=== PATIENT | male | born 1930 ===

== ENCOUNTER 2018-04-27 20:29 | Emergency (ER) | payer MEDICARE ==
[2018-04-27 20:44] VITALS: RESP 18; TEMP 97.9
--- NOTE | 2018-04-27 22:54 | ED PDOC ---
HPI: General Adult Time Seen by Provider: 04/27/18 21:56 Chief Complaint (Nursing): Anxiety Chief Complaint (Provider): Loss of appetite History Per: Patient History/Exam Limitations: no limitations Onset/Duration Of Symptoms: Other (x1 month) Current Symptoms Are (Timing): Still Present Additional Complaint(s): 88 year old male presents to the ED complaining of loss of appetite for the last month intermittently. He reports he feels nervous and nauseous which causes him to lose his appetite. He states he feels either good or tired and it comes and goes. Denies dizziness, numbness, fever, chest pain, nausea, vomiting, and diarrhea. Patient has no complaints right now. PMD: Dr. Shane Charles Past Medical History Reviewed: Historical Data, Nursing Documentation, Vital Signs Vital Signs: Last Vital Signs Temp 97.9 F 04/27/18 20:39 Pulse 62 04/27/18 20:39 Resp 18 04/27/18 20:39 BP 165/80 H 04/27/18 20:39 Pulse Ox 99 04/27/18 20:39 - Medical History PMH: HTN, Hypercholesterolemia, Hyperlipidemia, Hyperthyroidism - Surgical History Surgical History: Coronary Stent (3x) - Family History Family History: States: Unknown Family Hx - Immunization History Hx Tetanus Toxoid Vaccination: No Hx Influenza Vaccination: No Hx Pneumococcal Vaccination: No - Home Medications Home Medications: Ambulatory Orders Medication Instructions Recorded Benicar Hct 25 mg-40 mg 1 tab DAILY 10/03/14 Clopidogrel 75 mg DAILY 10/03/14 Hydralazine HCl 25 mg HS 10/03/14 Levothyroxine 25 mcg DAILY 10/03/14 RX: Naproxen [Naprosyn] 1 tab PO BID PRN #25 tab 10/03/14 Simvastatin 20 mg DAILY 10/03/14 Atenolol/Chlorthalidone 1 tab PO DAILY 05/19/15 [Atenolol/Chlorthalidone 50 mg-25 mg] RX: Clopidogrel [Plavix] 75 mg PO DAILY 05/19/15 RX: Enalapril Maleate [Vasotec] 10 mg PO HS 05/19/15 RX: Levothyroxine [Synthroid] 25 mg PO DAILY 05/19/15 RX: hydrALAZINE [Apresoline] 50 mg PO TID 05/19/15 Simvastatin 20 mg PO DAILY 05/19/15 Cyclobenzaprine HCl [Flexeril] 10 mg PO HS #10 tab 06/06/15 Oxycodone HCl/Acetaminophen 1 tab PO Q4 #10 tab 06/06/15 [Percocet 325 mg-5 mg] - Allergies Allergies/Adverse Reactions: Allergies Allergy/AdvReac Type Severity Reaction Status Date / Time No Known Allergies Allergy Verified 04/27/18 20:38 Review of Systems ROS Statement: Except As Marked, All Systems Reviewed And Found Negative Constitutional: Negative for: Fever Cardiovascular: Negative for: Chest Pain Gastrointestinal: Negative for: Nausea, Vomiting, Diarrhea Neurological: Negative for: Weakness, Numbness, Dizziness Physical Exam - Reviewed Nursing Documentation Reviewed: Yes Vital Signs Reviewed: Yes - Physical Exam Appears: Positive for: Non-toxic, No Acute Distress Head Exam: Positive for: ATRAUMATIC, NORMOCEPHALIC Skin: Positive for: Normal Color, Warm, Dry Eye Exam: Positive for: Normal appearance Neck: Positive for: Normal, Painless ROM Cardiovascular/Chest: Positive for: Regular Rate, Rhythm. Negative for: Murmur Respiratory: Positive for: Normal Breath Sounds. Negative for: Wheezing, Respiratory Distress Gastrointestinal/Abdominal: Positive for: Normal Exam, Soft. Negative for: Tenderness Extremity: Positive for: Normal ROM Neurologic/Psych: Positive for: Alert, Oriented. Negative for: Motor/Sensory Deficits - Laboratory Results Result Diagrams: 04/27/18 23:15 04/27/18 23:15 - ECG O2 Sat by Pulse Oximetry: 99 (RA) Pulse Ox Interpretation: Normal Medical Decision Making Medical Decision Making: Initial Impression: Decreased appetite, generalized weakness Differential includes UTI, dehydration, electrolyte abnormality Initial Plan: --ECG --Alcohol serum --CMP --Drug screen --ED urine dipstick --CBC Scribe Attestation: Documented by Noah Danielson acting as a scribe for Galina Fuentes MD. Provider Scribe Attestation: All medical record entries made by the Scribe were at my direction and personally dictated by me. I have reviewed the chart and agree that the record accurately reflects my personal performance of the history, physical exam, medical decision making, and the department course for this patient. I have also personally directed, reviewed, and agree with the discharge instructions and disposition. Disposition - Clinical Impression Clinical Impression: Anxiety, Hypertension - Patient ED Disposition Is Patient to be Admitted: No Doctor Will See Patient In The: Office Counseled Patient/Family Regarding: Studies Performed, Diagnosis, Need For Followup - Disposition Disposition: Routine/Home Disposition Time: 00:00 Condition: GOOD Additional Instructions: CAN JASON, thank you for letting us take care of you today. Your provider was Galina Fuentes MD and you were treated for LOSS OF APPETITE. The emergency medical care you received today was directed at your acute symptoms. If you were prescribed any medication, please fill it and take as directed. It may take several days for your symptoms to resolve. Return to the Emergency Department if your symptoms worsen, do not improve, or if you have any other problems. Please contact your doctor or call one of the physicians/clinics you have been referred to that are listed on the Patient Visit Information form that is included in your discharge packet. Bring any paperwork you were given at discharge with you along with any medications you are taking to your follow up visit. Our treatment cannot replace ongoing medical care by a primary care provider outside of the emergency department. Thank you for allowing the [facility] team to be part of your care today. If you had an X-Ray or CT scan: A Radiologist will review the ED reading if any change in treatment is needed we will contact you. If you had a blood, urine, or wound culture: It will take several days for the results, if any change in treatment is needed we will contact you. If you had an STI test: It will take 48 hours for the results. Please call after 1 week if you have not heard back. Instructions: High Blood Pressure (DC), Anxiety, Adult (DC) Print Language: GREEK
[2018-04-27 23:18] LABS: BASO # 0.1 K/uL (0.0-0.2); BASO % 0.6 % (0.0-2.0); EOS # 0.1 K/uL (0.0-0.7); EOS % 1.4 % (0.0-4.0); HEMOGLOBIN 14.2 g/dL (12.0-18.0); LYMPH # 4.2 K/uL (1.0-4.3); MEAN CELL VOLUME 86.1 fl (80.0-94.0); MEAN CORPUSCULAR HEMOGLOBIN 29.3 pg (27.0-31.0); MEAN PLATELET VOLUME 8.5 fl (7.2-11.7); MONO # 0.8 K/uL (0.0-0.8); MONO % 7.1 % (0.0-10.0); NEUT # 5.6 K/uL (1.8-7.0); NEUT % 51.9 % (50.0-75.0); RBC 4.84 Mil/uL (4.40-5.90); RED CELL DISTRIBUTION WIDTH 13.6 % (11.5-14.5); WHITE BLOOD COUNT 10.7 K/uL (4.8-10.8)
[2018-04-27 23:27] LABS: ALB/GLOB RATIO 1.3 (1.0-2.1); ALBUMIN 4.7 g/dL (3.5-5.0); ALT/SGPT 32 U/L (21-72); AST/SGOT 34 U/L (17-59); BLOOD UREA NITROGEN 25 mg/dl (9-20); GFR NON-AFRICAN AMERICAN 52
[2018-04-27 23:39] LABS: BARBITURATES, UR NEGATIVE (NEGATIVE); BENZODIAZEPINES, UR NEGATIVE (NEGATIVE); OPIATES, UR NEGATIVE (NEGATIVE); PHENCYCLIDINE, UR NEGATIVE (NEGATIVE)
[2018-04-28 00:55] VITALS: BP 165/86; PULSE 68
--- NOTE | 2018-04-28 10:20 | CARD ---
APPROVED REPORT Date of service: 04/27/2018 EKG Measurement Heart [id number] <Conclusion> Sinus rhythm with 1st degree AV block Nonspecific ST and T wave abnormality Prolonged QT Abnormal ECG
[2018-04-30 18:58] VITALS: O2SAT 99
== END 2018-04-28 01:02 | disposition home or self-care (01) ==
LOC: H.ER 20:29
DX: F41.9 Anxiety disorder, unspecified (principal); I10 Essential (primary) hypertension; E05.90 Thyrotoxicosis, unspecified without thyrotoxic crisis or storm; E78.00 Pure hypercholesterolemia, unspecified; I44.0 Atrioventricular block, first degree; Z95.5 Presence of coronary angioplasty implant and graft
CPT/HCPCS: 80053; 85025; 93005; 99283; G0480

== ENCOUNTER 2018-09-05 02:32 | Emergency (ER) | payer MEDICARE ==
[2018-09-05 02:58] VITALS: RESP 18; TEMP 98.1; O2SAT 100
--- NOTE | 2018-09-05 03:41 | ED PDOC ---
HPI: Hypertension/Hypotension Time Seen by Provider: 09/05/18 02:57 Chief Complaint (Nursing): High Blood Pressure Chief Complaint (Provider): High Blood Pressure History Per: Patient History/Exam Limitations: no limitations Additional Complaint(s): 88 y/o male presents to the ED with concern for high blood pressure. Patient was evaluated by his PMD yesterday and was told his blood pressure was very high. Patient was started on new medication yesterday. Patient was so concerned with elevated blood pressure that he couldn't sleep and became very anxious. His decided to bring him in to the ED for further workup. Denies chest pain, shortness of breath, dizziness or weakness. Patient is compliant with his medi cations. Past Medical History Reviewed: Historical Data, Nursing Documentation, Vital Signs Vital Signs: Last Vital Signs Temp 98.1 F 09/05/18 02:44 Pulse 57 L 09/05/18 02:44 Resp 18 09/05/18 02:44 BP 166/100 H 09/05/18 02:44 Pulse Ox 100 09/05/18 02:44 - Medical History PMH: HTN, Hypercholesterolemia, Hyperlipidemia, Hyperthyroidism, Hypothyroidism - Surgical History Surgical History: Coronary Stent (3x) - Family History Family History: States: Unknown Family Hx - Immunization History Hx Tetanus Toxoid Vaccination: No Hx Influenza Vaccination: No Hx Pneumococcal Vaccination: No - Home Medications Home Medications: Ambulatory Orders Medication Instructions Recorded Benicar Hct 25 mg-40 mg 1 tab DAILY 10/03/14 Clopidogrel 75 mg DAILY 10/03/14 Hydralazine HCl 25 mg HS 10/03/14 Levothyroxine 25 mcg DAILY 10/03/14 RX: Naproxen [Naprosyn] 1 tab PO BID PRN #25 tab 10/03/14 Simvastatin 20 mg DAILY 10/03/14 Atenolol/Chlorthalidone 1 tab PO DAILY 05/19/15 [Atenolol/Chlorthalidone 50 mg-25 mg] RX: Clopidogrel [Plavix] 75 mg PO DAILY 05/19/15 RX: Enalapril Maleate [Vasotec] 10 mg PO HS 05/19/15 RX: Levothyroxine [Synthroid] 25 mg PO DAILY 05/19/15 RX: hydrALAZINE [Apresoline] 50 mg PO TID 05/19/15 Simvastatin 20 mg PO DAILY 05/19/15 Cyclobenzaprine HCl [Flexeril] 10 mg PO HS #10 tab 06/06/15 Oxycodone HCl/Acetaminophen 1 tab PO Q4 #10 tab 06/06/15 [Percocet 325 mg-5 mg] - Allergies Allergies/Adverse Reactions: Allergies Allergy/AdvReac Type Severity Reaction Status Date / Time No Known Allergies Allergy Verified 04/27/18 20:38 Review of Systems ROS Statement: Except As Marked, All Systems Reviewed And Found Negative Constitutional: Negative for: Weakness Cardiovascular: Negative for: Chest Pain Respiratory: Negative for: Shortness of Breath Neurological: Negative for: Dizziness Physical Exam - Reviewed Nursing Documentation Reviewed: Yes Vital Signs Reviewed: Yes - Physical Exam Appears: Positive for: Well, Non-toxic, No Acute Distress Head Exam: Positive for: ATRAUMATIC, NORMAL INSPECTION, NORMOCEPHALIC Skin: Positive for: Normal Color, Warm, DRY Eye Exam: Positive for: EOMI, Normal appearance, PERRL ENT: Positive for: Normal ENT Inspection Neck: Positive for: Normal, Painless ROM Cardiovascular/Chest: Positive for: Regular Rate, Rhythm, Bradycardia. Negative for: Murmur Respiratory: Positive for: Normal Breath Sounds. Negative for: Respiratory Distress Gastrointestinal/Abdominal: Positive for: Normal Exam, Soft. Negative for: T enderness Back: Positive for: Normal Inspection Extremity: Positive for: Normal ROM. Negative for: Pedal Edema, Deformity Neurologic/Psych: Positive for: Alert, Oriented. Negative for: Motor/Sensory Deficits - Laboratory Results Result Diagrams: 09/05/18 03:42 09/05/18 03:42 - ECG ECG Rhythm: Positive for: Normal QRS, Sinus Bradycardia, 1st Degree Heart Block Rate: 52 O2 Sat by Pulse Oximetry: 100 (RA) Pulse Ox Interpretation: Normal Medical Decision Making Medical Decision Making: Time: 03:29 MDM: Workup for high blood pressure. Patient's blood pressure within normal limits, no indication for medications Plan: * Basic Labs * Cardiac enzyme * CXR 04:26 Patient's labs are within normal limits. His blood pressure is stable at 166/87 without medications. Patient is to be discharged home and will follow up with his PMD. Scribe Attestation: Documented by Issa Ham acting as a scribe for Rina Garcia MD. Provider Scribe Attestation: All medical record entries made by the Scribe were at my direction and personally dictated by me. I have reviewed the chart and agree that the record accurately reflects my personal performance of the history, physical exam, medical decision making, and the department course for this patient. I have also personally directed, reviewed, and agree with the discharge instructions and disposition. Disposition - Clinical Impression Clinical Impression: Hypertension - Disposition Disposition: Routine/Home Disposition Time: 04:26 Condition: IMPROVED Additional Instructions: Continue to take all medications as prescribed by primary medical doctor. Follow up with primary medical doctor as previously scheduled. Return to the emergency department if you develop chest pain, difficulty breathing or other new symptoms. Instructions: High Blood Pressure (DC), Controlling Your Blood Pressure Through Lifestyle, Medicines for High Blood Pressure Forms: [employer] (Sami), Akita (Romanian) Print Language: TAJIK
[2018-09-05 03:44] VITALS: PULSE 52
[2018-09-05 03:46] LABS: BASO % 0.4 % (0.0-2.0); EOS # 0.2 K/uL (0.0-0.7); EOS % 2.4 % (0.0-4.0); HEMOGLOBIN 13.6 g/dL (12.0-18.0); LYMPH # 2.6 K/uL (1.0-4.3); LYMPH % 31.4 % (20.0-40.0); MEAN CELL VOLUME 85.6 fl (80.0-94.0); MEAN CORPUSCULAR HEMOGLOBIN 28.9 pg (27.0-31.0); MEAN CORPUSCULAR HGB CONC 33.7 g/dL (33.0-37.0); MEAN PLATELET VOLUME 8.5 fl (7.2-11.7); MONO # 0.7 K/uL (0.0-0.8); MONO % 8.5 % (0.0-10.0); NEUT # 4.8 K/uL (1.8-7.0); NEUT % 57.3 % (50.0-75.0); NRBC % 0.2 % (0.0-0.0); RBC 4.71 Mil/uL (4.40-5.90); RED CELL DISTRIBUTION WIDTH 13.4 % (11.5-14.5); WHITE BLOOD COUNT 8.4 K/uL (4.8-10.8)
[2018-09-05 03:51] LABS: BLOOD UREA NITROGEN 19 mg/dl (9-20); CALCIUM 9.4 mg/dL (8.4-10.2); GFR NON-AFRICAN AMERICAN > 60
[2018-09-05 04:40] VITALS: BP 144/75
--- NOTE | 2018-09-05 16:47 | RAD ---
Date of service: 09/05/2018 HISTORY: possible admission COMPARISON: No prior. FINDINGS: LUNGS: No active pulmonary disease. PLEURA: No significant pleural effusion identified, no pneumothorax apparent. CARDIOVASCULAR: No aortic atherosclerotic calcification present. Normal cardiac size. No pulmonary vascular congestion. OSSEOUS STRUCTURES: No significant abnormalities. VISUALIZED UPPER ABDOMEN: Normal. OTHER FINDINGS: None. IMPRESSION: No active disease.
== END 2018-09-05 04:41 | disposition home or self-care (01) ==
LOC: H.ER 02:32
DX: I10 Essential (primary) hypertension (principal); E03.9 Hypothyroidism, unspecified; E05.90 Thyrotoxicosis, unspecified without thyrotoxic crisis or storm; Z95.5 Presence of coronary angioplasty implant and graft; Z79.899 Other long term (current) drug therapy; E78.00 Pure hypercholesterolemia, unspecified